=== PATIENT | female | born 1980 | race African-American/Black ===

== ENCOUNTER 2017-10-01 12:44 | Emergency (ER) | payer MEDICAID ==
[~2017-10-01] VITALS: Ht 175.3 cm; Wt 75.0 kg
[2017-10-01] MEDS ORDERED: ACETAMINOPHEN WITH CODEINE 300/30MG TABLET PO ONE (14:30)
[2017-10-01 16:38] VITALS: BP 142/87
== END 2017-10-01 16:57 | disposition home or self-care (01) ==
LOC: ER 13:10
DX: S00.83XA Contusion of other part of head, initial encounter (principal); I10 Essential (primary) hypertension; E11.9 Type 2 diabetes mellitus without complications; W22.8XXA Striking against or struck by other objects, initial encounter; Y93.89 Activity, other specified; Y92.89 Other specified places as the place of occurrence of the external cause; Y99.8 Other external cause status; Z91.041 Radiographic dye allergy status
CPT/HCPCS: 70486; 81025; 99284

== ENCOUNTER 2018-03-04 02:06 | Emergency (ER) | payer MEDICAID ==
[~2018-03-04] VITALS: Ht 167.6 cm; Wt 79.0 kg
[2018-03-04] MEDS ORDERED: SODIUM CHLORIDE 0.9% 1,000 ML IV ONE (02:46)
[2018-03-04] MEDS ORDERED: MORPHINE SULFATE 4 MG/ML CPJ (NOT FOR IM USE) IV STA (02:46)
[2018-03-04] MEDS ORDERED: ONDANSETRON HCL 4MG/2ML INJ IV STA (02:46)
[2018-03-04 03:42] LABS: BASOPHILS % 0.4 % (0.0-2.0); EOSINOPHILS % 0.6 % (0.0-5.0); HEMATOCRIT. 40.3 % (36.0-48.0); HEMOGLOBIN. 13.2 g/dL (12.0-16.0); LYMPHOCYTES % 50.2 % (20.0-50.0); MEAN CORPUSCULAR HEMOGLOBIN 29.3 pg (28.0-32.0); MEAN CORPUSCULAR VOLUME 89.3 fL (81.0-99.0); MEAN PLATELET VOLUME 9.9 fl (7.4-10.4); MONOCYTES % 7.6 % (2.0-8.0); NEUTROPHILS % 41.2 % (40.0-76.0); PLATELET 328 x1000/uL (130-400); RED BLOOD CELL COUNT 4.52 mill/uL (4.2-5.4); RED CELL DISTRIBUTION WIDTH 12.8 % (11.6-14.6)
[2018-03-04 03:47] LABS: CHLORIDE 97 mEq/L (98-107)
[2018-03-04 03:48] LABS: HCG SCREEN NEGATIVE
[2018-03-04 03:50] LABS: INR 0.9; PARTIAL THROMBOPLASTIN TIME 24.6 sec (23.4-31.0); PROTHROMBIN TIME 9.4 sec (9.1-11.1)
[2018-03-04] MEDS ORDERED: KCL 20MEQ/100ML PREMIX 100 ML IV ONE (04:15)
[2018-03-04] MEDS ORDERED: POTASSIUM CHLORIDE 20MEQ TABLET SR PO ONE (04:15)
[2018-03-04 05:48] VITALS: BP 125/75
== END 2018-03-04 06:27 | disposition home or self-care (01) ==
LOC: ER 02:06
DX: E87.6 Hypokalemia (principal); E11.9 Type 2 diabetes mellitus without complications; F12.90 Cannabis use, unspecified, uncomplicated; Z98.890 Other specified postprocedural states
CPT/HCPCS: 36415; 80053; 83735; 84703; 85025; 85610; 85730; 93005; 93970; 96365; 96366; 96375; 99285; J2270; J2405; J3480; J7030

== ENCOUNTER 2019-04-25 00:45 | Inpatient (IN) | payer MEDICAID ==
[~2019-04-25] VITALS: Ht 167.6 cm; Wt 81.6 kg
[2019-04-25] MEDS ORDERED: FAMOTIDINE 20MG/2ML VIAL IV ONE (01:15)
[2019-04-25] MEDS ORDERED: SODIUM CHLORIDE 0.9% 1,000 ML IV ONE (01:15)
[2019-04-25] MEDS ORDERED: ONDANSETRON HCL 4MG/2ML INJ IV ONE (01:15)
[2019-04-25 01:54] LABS: BASOPHILS % 0.6 % (0.0-2.0); HEMOGLOBIN. 13.2 g/dL (12.0-16.0); LYMPHOCYTES % 10.5 % (20.0-50.0); MEAN CORPUSCULAR HEMOGLOBIN 28.9 pg (28.0-32.0); MEAN PLATELET VOLUME 8.6 fl (7.4-10.4); MONOCYTES % 4.4 % (2.0-8.0); NEUTROPHILS % 84.5 % (40.0-76.0); PLATELET 361 x1000/uL (130-400); RED BLOOD CELL COUNT 4.55 mill/uL (4.2-5.4); RED CELL DISTRIBUTION WIDTH 12.6 % (11.6-14.6)
[2019-04-25 02:01] LABS: CHLORIDE 106 mEq/L (98-107)
[2019-04-25] MEDS ORDERED: FAMOTIDINE 20MG/2ML VIAL IV SCH (02:15)
[2019-04-25] MEDS ORDERED: LABETALOL 5MG/ML SYR 20 MG/4 ML SYRINGE IV ONE (03:00)
[2019-04-25] MEDS ORDERED: METOCLOPRAMIDE HCL 10MG/2ML VIAL IV ONE (03:00)
[2019-04-25] MEDS ORDERED: INSULIN REGULAR (HUMULIN R) 300UNITS/3ML SUBCUT ONE (08:45)
[2019-04-25] MEDS ORDERED: NITROGLYCERIN 0.4MG TABLET SL SL PRN (09:30)
[2019-04-25] MEDS ORDERED: ZOLPIDEM TARTRATE 5MG TABLET PO PRN (09:30)
[2019-04-25] MEDS ORDERED: GUAIFENESIN 200MG/10ML SUGAR FREE UDC PO PRN (09:30)
[2019-04-25] MEDS ORDERED: CLONIDINE 0.1MG TABLET PO PRN (09:30)
[2019-04-25] MEDS ORDERED: DOCUSATE SODIUM 100MG CAPSULE PO PRN (09:30)
[2019-04-25] MEDS ORDERED: MAGNESIUM/ALUMINUM HYDROXIDE/SIMETHICONE 30ML UDC PO PRN (09:30)
[2019-04-25] MEDS ORDERED: ACETAMINOPHEN 325MG TABLET PO PRN (09:30)
[2019-04-25] MEDS ORDERED: IPRATROPIUM/ALBUTEROL 0.5-3(2.5)MG/3ML NEB NEB PRN (09:30)
[2019-04-25] MEDS ORDERED: DEXTROSE 50% WATER 50ML SYRINGE IV PRN (09:30)
[2019-04-25] MEDS: AMLODIPINE 10MG TABLET PO SCH (10:34)
[2019-04-25] MEDS: PANTOPRAZOLE SODIUM 40 MG/VIAL IV SCH (10:34)
[2019-04-25] MEDS ORDERED: INSULIN GLARGINE UD 100 UNITS/ML SYR SUBCUT SCH (11:00)
[2019-04-25] MEDS ORDERED: METOCLOPRAMIDE 10MG/10 ML UDC PO SCH (12:50)
[2019-04-25 17:00] VITALS: BP 175/101
[2019-04-25] MEDS ORDERED: ENOXAPARIN 40MG/0.4ML SYR SUBCUT SCH (17:00)
[2019-04-25 17:20] VITALS: BP 175/101
[2019-04-25] MEDS: METOCLOPRAMIDE 10MG/10 ML UDC PO SCH (17:30)
[2019-04-25] MEDS: ONDANSETRON HCL 4MG/2ML INJ IV PRN (17:31)
[2019-04-25] MEDS: SUCRALFATE 1 G/10 ML UDC PO SCH ×2 (17:31→23:15)
[2019-04-25] MEDS: LORAZEPAM 0.5MG TABLET PO PRN (17:31)
[2019-04-25] MEDS: KETOROLAC 15MG/ML VIAL IV PRN (17:36)
[2019-04-25] MEDS: BLOOD SUGAR DIAGNOSTIC STRIP TEST SCH ×2 (17:40→23:13)
[2019-04-25] MEDS: INSULIN LISPRO 100 UNITS/ML SUBCUT SCH ×3 (18:53→21:00)
[2019-04-25 20:00] VITALS: BP 91/58
[2019-04-25] MEDS: LISINOPRIL 20MG TABLET PO SCH (21:00)
[2019-04-25] MEDS: METOPROLOL TARTRATE 25MG TABLET PO SCH (21:00)
[2019-04-26] VITALS: BP 115/51
[2019-04-26] MEDS: KETOROLAC 15MG/ML VIAL IV PRN ×2 (02:29→08:50)
[2019-04-26 03:03] LABS: *AMPHETAMINES SCREEN URINE NEGATIVE (NEGATIVE); CANNABINOID URINE SCREEN NEGATIVE (NEGATIVE); METHADONE URINE SCREEN NEGATIVE (NEGATIVE); OPIATES URINE SCREEN NEGATIVE (NEGATIVE); PHENCYCLIDINE URINE SCREEN NEGATIVE (NEGATIVE)
[2019-04-26 03:04] LABS: *BENZODIAZEPINES SCREEN URINE NEGATIVE (NEGATIVE); *COCAINE SCREEN URINE NEGATIVE (NEGATIVE)
[2019-04-26 03:11] LABS: *BARBITURATES SCREEN URINE PRESUMTIVE POSITIVE (NEGATIVE)
[2019-04-26 04:00] VITALS: BP 126/68
[2019-04-26] MEDS: BLOOD SUGAR DIAGNOSTIC STRIP TEST SCH ×2 (07:56→12:40)
[2019-04-26 08:00] VITALS: BP 141/71
[2019-04-26] MEDS: METOCLOPRAMIDE 10MG/10 ML UDC PO SCH ×2 (08:53→14:27)
[2019-04-26] MEDS: SUCRALFATE 1 G/10 ML UDC PO SCH ×2 (08:53→14:27)
[2019-04-26] MEDS: LORAZEPAM 0.5MG TABLET PO PRN (08:58)
[2019-04-26] MEDS: ONDANSETRON HCL 4MG/2ML INJ IV PRN ×2 (08:58→14:27)
[2019-04-26] MEDS: METOPROLOL TARTRATE 25MG TABLET PO SCH (09:04)
[2019-04-26] MEDS: AMLODIPINE 10MG TABLET PO SCH (09:04)
[2019-04-26] MEDS: INSULIN LISPRO 100 UNITS/ML SUBCUT SCH ×4 (09:05→15:23)
[2019-04-26] MEDS: LISINOPRIL 20MG TABLET PO SCH (09:05)
[2019-04-26] MEDS: PANTOPRAZOLE SODIUM 40 MG/VIAL IV SCH (09:13)
[2019-04-26] MEDS ORDERED: INSULIN GLARGINE UD 100 UNITS/ML SYR SUBCUT SCH (10:00)
[2019-04-26 12:00] VITALS: BP 140/75
[2019-04-26 13:13] VITALS: BP 147/72
[2019-04-26 15:27] VITALS: BP 145/90
[2019-04-27] MEDS ORDERED: FAMOTIDINE 20MG/2ML VIAL IV SCH (09:00)
== END 2019-04-26 16:39 | disposition home or self-care (01) | DRG 48 ==
LOC: ER 00:45 → 7WST 06:06 → ENRESERV 15:45
PROVIDERS: ADMIT Internal Medicine; ATTEND Internal Medicine
DX: E11.43 Type 2 diabetes mellitus with diabetic autonomic (poly)neuropathy (principal); N17.0 Acute kidney failure with tubular necrosis; E44.0 Moderate protein-calorie malnutrition; K31.84 Gastroparesis; E66.9 Obesity, unspecified; I10 Essential (primary) hypertension; F32.9 Major depressive disorder, single episode, unspecified; F41.9 Anxiety disorder, unspecified; Z68.29 Body mass index [BMI] 29.0-29.9, adult; Z79.4 Long term (current) use of insulin; Z91.041 Radiographic dye allergy status
CPT/HCPCS: 36415; 74176; 80053; 80305; 82962; 83036; 85025; 93970; 99285; C9113; J1650; J1815; J1885; J2405; J2765; J3490; J7030; J7040; J8597

== ENCOUNTER 2019-05-15 16:45 | Emergency (ER) | payer MEDICAID ==
[~2019-05-15] VITALS: Ht 165.1 cm; Wt 78.0 kg
[2019-05-15 16:50] VITALS: BP 134/70
== END 2019-05-15 19:50 | disposition left against medical advice (07) ==
LOC: ER 16:45
DX: R10.9 Unspecified abdominal pain (principal); Z53.21 Procedure and treatment not carried out due to patient leaving prior to being seen by health care provider